=== PATIENT | female | born 1975 | race Caucasian/White ===

== ENCOUNTER → 2017-11-07 | Outpatient (CLI) | payer OTHER | LOC: HPND 09:22 | PROVIDERS: ATTEND Obstetrics & Gynecology | DX: O09.521 Supervision of elderly multigravida, first trimester (principal); O26.21 Pregnancy care for patient with recurrent pregnancy loss, first trimester; O99.281 Endocrine, nutritional and metabolic diseases complicating pregnancy, first trimester; O34.41 Maternal care for other abnormalities of cervix, first trimester; Z36.9 Encounter for antenatal screening, unspecified | CPT/HCPCS: 76813 ==

== ENCOUNTER → 2017-12-12 | Outpatient (CLI) | payer OTHER | LOC: HPND 09:28 | PROVIDERS: ATTEND Obstetrics & Gynecology | DX: O09.522 Supervision of elderly multigravida, second trimester (principal); O34.42 Maternal care for other abnormalities of cervix, second trimester; O99.282 Endocrine, nutritional and metabolic diseases complicating pregnancy, second trimester | CPT/HCPCS: 76811; 76817 ==

== ENCOUNTER → 2018-01-10 | Outpatient (CLI) | payer OTHER | LOC: HPND 15:04 | PROVIDERS: ATTEND Obstetrics & Gynecology | DX: O34.42 Maternal care for other abnormalities of cervix, second trimester (principal); O09.522 Supervision of elderly multigravida, second trimester | CPT/HCPCS: 76816 ==

== ENCOUNTER 2018-05-02 13:03 | Inpatient (IN) | payer OTHER ==
[2018-05-02] VITALS (8 sets, daily range): BP systolic 117–137; BP diastolic 74–84; PULSE 67–92; RESP 18; TEMP 97.8–98.2
[~2018-05-02] VITALS: Ht 167.6 cm; Wt 98.4 kg
[2018-05-02] MEDS ORDERED: [UNRECOGNIZED DRUG - REMARK] OTHER SCH (14:45)
[2018-05-02 15:14] LABS: AUTOMATED NEUTROPHIL # 7.5 TH/MM3 (1.8-7.7); BASOPHIL # 0.1 TH/MM3 (0-0.2); BASOPHIL % 0.5 % (0.0-2.0); EOSINOPHIL # 0.1 TH/MM3 (0-0.4); EOSINOPHIL % 0.8 % (0.0-4.0); HEMATOCRIT 33.9 % (35.0-46.0); HEMOGLOBIN 11.3 GM/DL (11.6-15.3); LYMPH % 16.2 % (9.0-44.0); LYMPHOCYTE # 1.6 TH/MM3 (1.0-4.8); MEAN CELL VOLUME 88.1 FL (80.0-100.0); MEAN CORPUSCULAR HEMOGLOBIN 29.4 PG (27.0-34.0); MEAN CORPUSCULAR HGB CONC 33.3 % (32.0-36.0); MONO % 6.2 % (0.0-8.0); MONOCYTE # 0.6 TH/MM3 (0-0.9); NEUT % 76.3 % (16.0-70.0); PLATELET COUNT 330 TH/MM3 (150-450); RED BLOOD COUNT 3.85 MIL/MM3 (4.00-5.30); RED CELL DISTRIBUTION WIDTH 14.4 % (11.6-17.2); WHITE BLOOD COUNT 9.8 TH/MM3 (4.0-11.0)
[2018-05-02] MEDS ORDERED: DINOPROSTONE 10 MG INSERT-LEAVE FOR 12 HOURS VAGINAL ONE (15:15)
[2018-05-02] MEDS ORDERED: LACTATED RINGER'S 1000 ML INJ 1,000 ML IV SCH (15:15)
[2018-05-02] MEDS ORDERED: NS 1000 ML IV PRN (15:30)
[2018-05-02] MEDS ORDERED: CITRIC ACID-SODIUM CITRATE LIQ 30 ML UDC PO SCH (15:30)
[2018-05-02] MEDS ORDERED: LIDOCAINE HCL 1% 50 ML VIAL INFIL PRN (15:30)
[2018-05-02] MEDS ORDERED: LIDOCAINE HCL 1% 50 ML VIAL I-DERMAL PRN (15:30)
[2018-05-02] MEDS ORDERED: OXYTOCIN 30 UNITS 500ML PREMIX IV ONE (15:30)
[2018-05-02] MEDS ORDERED: NS 500 ML BOLUS IV PRN (15:30)
[2018-05-02] MEDS ORDERED: ONDANSETRON ODT 4 MG TAB SL PRN (15:30)
[2018-05-02] MEDS ORDERED: LACTATED RINGER'S 1000 ML BOLUS IV PRN (15:30)
[2018-05-02] MEDS ORDERED: MINERAL OIL 10 ML VIAL TOPICAL PRN (15:30)
[2018-05-02] MEDS ORDERED: LACTATED RINGER'S 1000 ML IV SCH (15:30)
[2018-05-02 15:47] LABS: BACTERIA, URINE OCC /hpf; BILIRUBIN, URINE NEG (NEG); BLOOD, URINE NEG (NEG); GLUCOSE,URINE NEG (NEG); KETONE, URINE NEG (NEG); MUCUS URINE FEW /lpf (OCC); NITRITE,URINE NEG (NEG); SQUAMOUS EPITHELIAL CELL URINE 2 /hpf (0-5); URINE COLOR YELLOW (YELLW/STRAW); URINE LEUKOCYTE ESTERASE NEG (NEG)
--- NOTE | 2018-05-02 17:12 | MH ---
cc: Alphonso Cheung MD, John A MD DATE OF ADMISSION: 05/02/2018 ADMITTING DIAGNOSIS: 1. at 37-38 weeks. 2. Oligo hydramnios. 3. Advanced maternal age. HISTORY OF PRESENT ILLNESS: The patient is a 42-year-old white female, para 1-0-2-1, LMP of 08/12/2017, EDC of 05/19/2018. Her course has been benign. Biophysical profile today showed a score of 8 of 10. AMAYA reduced to 3.7. She is now admitted for delivery. PAST MEDICAL HISTORY/PAST SURGICAL HISTORY: At age 19-20, she had a LEEP procedure, 1996 right lower extremity sebaceous cyst. ALLERGIES: ASPIRIN. TRANSFUSIONS: None. MEDICATIONS: Vitamins, Synthroid and iron pills. SOCIAL HISTORY: She is , employed. Alcohol, tobacco and drugs are none. FAMILY HISTORY: Noncontributory. PHYSICAL EXAMINATION: GENERAL: A well-nourished, well-developed white female. VITAL SIGNS: Stable. HEENT: Normal. CHEST: Clear. HEART: Regular rate. BREASTS: Symmetrical. ABDOMEN: Benign, gravid. EFW is about 3300 grams, vertex cervix is closed. ASSESSMENT: As above. PLAN: She is now admitted for Cervidil and Pitocin. Should she have failure to progress or distress, would need delivery. The risks, benefits and complications were explained and accepted. MD CHASITY Cary/ , 05:00 PM , 05:10 PM
[2018-05-03] VITALS (19 sets, daily range): BP systolic 95–151; BP diastolic 57–91; PULSE 75–117; RESP 16–18; TEMP 97.6–98.3
[2018-05-03] MEDS ORDERED: fentaNYL 2MCG-BUPIV 0.125% INJ 150 ML EPIDURAL ONE (01:58)
[2018-05-03] MEDS ORDERED: OXYTOCIN 30 UNITS-500ML PREMIX 500 ML ONE (02:26)
[2018-05-03] MEDS ORDERED: ZOLPIDEM TARTRATE 5 MG TAB PO PRN (03:00)
[2018-05-03] MEDS ORDERED: OXYTOCIN 30 UNITS-500ML PREMIX 500 ML IV SCH (03:00)
[2018-05-03] MEDS ORDERED: BENZOCAINE 20% TOPICAL SPRAY 60 ML CAN TOPICAL PRN (03:00)
[2018-05-03] MEDS ORDERED: ACETAMINOPHEN 325 MG TAB PO PRN (03:00)
[2018-05-03] MEDS ORDERED: oxyCODONE/ACETAMINOPHEN 5 MG/325 MG TAB PO PRN ×2 (03:00)
[2018-05-03] MEDS ORDERED: DOCUSATE SODIUM 50 MG/SENNA 8.6 MG TAB PO PRN (03:00)
[2018-05-03] MEDS ORDERED: SODIUM CHLORIDE 0.9% FLUSH 10 ML FLUSH IV FLUSH PRN (03:00)
[2018-05-03] MEDS ORDERED: ALUMINUM/MAGNESIUM/SIMETH 30 ML CUP PO PRN (03:00)
[2018-05-03] MEDS ORDERED: WITCH HAZEL 50%/GLYCERIN 12.5% 40 PAD JAR TOPICAL PRN (03:00)
[2018-05-03] MEDS ORDERED: ONDANSETRON ODT 4 MG TAB PO PRN (03:00)
[2018-05-03] MEDS: IBUPROFEN 800 MG TAB PO PRN ×3 (07:35→23:37)
[2018-05-03] MEDS ORDERED: SODIUM CHLORIDE 0.9% FLUSH 10 ML FLUSH IV FLUSH SCH (09:00)
[2018-05-03] MEDS: LEVOTHYROXINE SODIUM 150 MCG TAB PO SCH (11:01)
[2018-05-03] MEDS: LEVOTHYROXINE SODIUM 25 MCG TAB PO SCH (11:01)
[2018-05-03] MEDS ORDERED: MEASLES, MUMPS, RUBELLA VACCINE 0.5 ML VIAL SQ ONE (16:00)
[2018-05-03] MEDS ORDERED: DIPHTH/TETANUS/ACEL PERTUSSIS (BOOSTER) 0.5 ML VIAL/PFS IM ONE (16:00)
[2018-05-04] MEDS: LEVOTHYROXINE SODIUM 150 MCG TAB PO SCH (05:33)
[2018-05-04] MEDS: LEVOTHYROXINE SODIUM 25 MCG TAB PO SCH (05:34)
[2018-05-04 07:00] LABS: AUTOMATED NEUTROPHIL # 7.2 TH/MM3 (1.8-7.7); BASOPHIL # 0.1 TH/MM3 (0-0.2); BASOPHIL % 0.7 % (0.0-2.0); EOSINOPHIL # 0.3 TH/MM3 (0-0.4); EOSINOPHIL % 2.4 % (0.0-4.0); HEMATOCRIT 35.1 % (35.0-46.0); HEMOGLOBIN 11.5 GM/DL (11.6-15.3); LYMPH % 25.8 % (9.0-44.0); LYMPHOCYTE # 2.9 TH/MM3 (1.0-4.8); MEAN CELL VOLUME 89.6 FL (80.0-100.0); MEAN CORPUSCULAR HEMOGLOBIN 29.2 PG (27.0-34.0); MEAN CORPUSCULAR HGB CONC 32.6 % (32.0-36.0); MEAN PLATELET VOLUME 7.9 FL (7.0-11.0); MONO % 6.7 % (0.0-8.0); MONOCYTE # 0.7 TH/MM3 (0-0.9); NEUT % 64.4 % (16.0-70.0); PLATELET COUNT 298 TH/MM3 (150-450); RED BLOOD COUNT 3.92 MIL/MM3 (4.00-5.30); RED CELL DISTRIBUTION WIDTH 15.1 % (11.6-17.2); WHITE BLOOD COUNT 11.2 TH/MM3 (4.0-11.0)
[2018-05-04] MEDS: IBUPROFEN 800 MG TAB PO PRN (07:32)
[2018-05-04 07:38] VITALS: BP 109/70; PULSE 80; RESP 20; TEMP 97.6; O2SAT 97
--- NOTE | 2018-05-04 10:54 | HHI.DCPOC ---
Discharge Care Plan Report Symptoms to Your Doctor -Temperature above 100.5 degrees -Redness, of incision or excessive or foul smelling drainage -Unusual pain or calf pain -Increased vaginal bleeding -Painful or difficulty urinating -Feelings of extreme sadness or anxiety after 2 weeks Goals to Promote Your Health * To prevent worsening of your condition and complications * To maintain your health at the optimal level Directions to Meet Your Goals Take your medications as prescribed Follow your dietary instruction Follow activity as directed Ensure plenty of rest for recovery Drink fluids for hydration Keep your appointments as scheduled Take your immunizations and boosters as scheduled If your symptoms worsen call your PCP, if no PCP go to Urgent Care Center or Emergency Room Smoking is Dangerous to Your Health. Avoid second hand smoke Call the 24-hour crisis hotline for domestic abuse at Alphonso Cheung MD May 04, 2018 10:54
--- NOTE | 2018-05-04 11:12 | MD ---
cc: Alphonso Cheung MD DATE OF DISCHARGE: ADMITTING DIAGNOSES: 1. at 37-38 weeks. 2. Advanced maternal age of 42. 3. Oligohydramnios. DISCHARGE DIAGNOSES: 1. at 37-38 weeks. 2. Advanced maternal age of 42. 3. Oligohydramnios. 4. Delivered. HISTORY OF PRESENT ILLNESS AND HOSPITAL COURSE: This is a 42-year-old white female, para 1-0-2-1, LMP of 08/12/2017, EDC of 05/19/2018. Her preop course was benign. Her first TM screen and ultrasound followups were normal. On the day of admission, her BPP showed an AMAYA of 3.7. She was admitted for Cervidil on the afternoon of 05/02/2018. Her GBS was negative. She developed active labor, received epidural anesthesia and progressed to a spontaneous vaginal delivery on the public housing manager of 05/03/2018 of a viable vigorous male, Apgars 8 and 8. , did well. Discharged home in excellent condition on 05/04/2018. She was carefully instructed in , perineal, circ. care. Return to see me in 6 weeks. She is to call for abnormal pain, bleeding, temperature, signs of infection and depression. She will take her routine medications at home and call me if any problems. MD CHASITY Cary/KD , 10:50 AM , 11:11 AM MOLLY
== END 2018-05-04 14:09 | disposition home or self-care (01) | DRG 775 ==
LOC: H2EA 13:03 → H1EA 05-03 07:47
PROVIDERS: ADMIT Obstetrics & Gynecology; ATTEND Obstetrics & Gynecology
PROC: 3E0P7VZ Introduction of Hormone into Female Reproductive, Via Natural or Artificial Opening (ICD-10-PCS; 2018-05-02)
PROC: 10E0XZZ Delivery of Products of Conception, External Approach (ICD-10-PCS; principal; 2018-05-03)
PROC: 0W8NXZZ Division of Female Perineum, External Approach (ICD-10-PCS; 2018-05-03)
PROC: 0HQ9XZZ Repair Perineum Skin, External Approach (ICD-10-PCS; 2018-05-03)
DX: O41.00X0 Oligohydramnios, unspecified trimester, not applicable or unspecified (principal); O71.82 Other specified trauma to perineum and vulva; Z37.0 Single live birth; Z3A.37 37 weeks gestation of pregnancy
CPT/HCPCS: 76816; 76818; 80307; 81001; 85025; 86900; 86901; 90715; J2590